=== PATIENT | female | born 1985 | race Caucasian/White ===

== ENCOUNTER 2019-03-31 18:31 | Inpatient (IN) | payer OTHER ==
[~2019-03-31] VITALS: Ht 162.6 cm; Wt 69.1 kg
[~2019-03-31 18:31] MED LIST: AMOCLA875 PO; AMOX1XR PO; ARIP10 PO; AZIT250 PO; CARB200ER; CEPH500 PO; CLON.5 PO; CODACEE120 PO; CYCL10 PO; Crutch1 EACH MISC; DIAZ5 PO; DULO30 PO; EFFEXOR; ESCI20 PO; ESZO2 PO; Flonase 0.05% N16 GM; GABA300 PO; HYDACE5 PO; HYDACE5325 PO; IBUHYD PO; IBUP400 PO; IBUP600 PO; IBUP800 PO; ISODICACE PO; LAMICTAL XR250 MG PO; LAMO100; LAMO100 PO; LATUDA60 MG PO; LORA1 PO; METCAR500 PO; METCAR750 PO; METF500 PO; METO5A PO; MULVITMINE; NAPR500 PO; Norco 5-325 Ta1 EACH PO; OMEP20ER PO; ONDA4 PO; OXYACE5T PO; PENVK500 PO; PRAZ1; PRED20 PO; PROACE100 PO; PROC10 PO; Percocet 5-3251 EACH PO; RXCLIN PO; RXHYDACE PO; TRAZ100 PO; Ultram50 MG PO; Veetids 500500 MG PO; Zofran Odt4 MG SL; [UNRECOGNIZED DRUG - REMARK]
[2019-03-31 19:03] LABS: BASOPHILS ABSOLUTE AUTO 0.06 K/mm3 (0.00-0.23); BASOPHILS PERCENT AUTO 0 % (0-2); EOSINOPHILS ABSOLUTE AUTO 0.05 K/mm3 (0.00-0.68); EOSINOPHILS PERCENT AUTO 0 % (0-6); Hematocrit 38.1 % (33.0-51.0); Hemoglobin 12.7 g/dL (11.5-16.0); IMMATURE GRAN PERCENT AUTO 1 % (0-1); LYMPHOCYTES ABSOLUTE AUTO 1.43 K/mm3 (0.84-5.20); LYMPHOCYTES PERCENT AUTO 5 % (21-46); MONOCYTES ABSOLUTE AUTO 0.38 K/mm3 (0.16-1.47); MONOCYTES PERCENT AUTO 1 % (4-13); Mean Corpuscular HGB 30.8 pg (26.0-34.0); Mean Corpuscular HGB Conc 33.3 g/dL (31.5-36.5); Mean Corpuscular Volume 93 fL (80-100); Mean Platelet Volume 8.7 fL (9.1-12.4); NEUTROPHILS ABSOLUTE AUTO 25.39 K/mm3 (1.96-9.15); NEUTROPHILS PERCENT AUTO 92 % (41-73); Platelet Count 322 K/mm3 (150-400); RDW Coefficient Variation 13.4 % (11.7-14.2); RDW Standard Deviation 46.2 fL (35.1-46.3); Red Blood Cell Count 4.12 M/mm3 (3.80-5.20); White Blood Cell Count 27.51 K/mm3 (4.00-11.30)
[2019-03-31 19:30] LABS: Alanine Aminotransfer (ALT/SGP 22 U/L (12-78); Albumin, Blood 3.3 g/dL (3.4-5.0); Albumin/Globulin Ratio 0.8 (0.8-1.8); Alk Phos 151 U/L (50-136); Anion Gap 8 mmol/L (6-16); Aspartate Aminotrans (AST/SGOT 82 U/L (12-37); Bilirubin, Total 0.5 mg/dL (0.1-1.0); Blood Urea Nitrogen 11 mg/dL (8-24); Bun/Creatinine Ratio 17.3 (12.0-20.0); CO2, Blood 23 mmol/L (21-32); Calcium, Blood 9.1 mg/dL (8.5-10.1); Chloride, Blood 104 mmol/L (98-108); Creatinine, Blood 0.64 mg/dL (0.40-1.00); Globulin, Blood 4.2 g/dL (2.2-4.0); Glomerular Filtration Rate >60 (60-); Glucose, Blood 116 mg/dL (70-99); Potassium, Blood 4.1 mmol/L (3.5-5.5); Sodium, Blood 135 mmol/L (136-145); Total Protein, Blood 7.5 g/dL (6.4-8.2)
[2019-03-31] MEDS ORDERED: TIZA4 PO (20:08)
[2019-03-31] MEDS ORDERED: Atarax10 MG PO (20:09)
[2019-03-31 21:25] LABS: Source, Urine Clean Catch
[2019-03-31 21:26] LABS: Base Excess Venous -0.8 mmol/L; Bicarbonate Venous 24.3 mmol/L (24.0-30.0); PCO2 Venous 32.2 mmHg (38-42); PO2 Venous 82.2 mmHg (38-42); pH Blood Venous 7.46 (7.34-7.37)
[2019-03-31 21:28] LABS: Bilirubin, Urine Neg (Neg); Blood, Urine Neg (Neg); Glucose Qualitative, Urine Neg (Neg); Ketones, Urine Neg (Neg); Leukocyte Esterase, Urine 1+ (Neg); Nitrite, Urine Neg (Neg); Protein, Urine 1+ (Neg); Urobilinogen, Urine NORM (Normal)
[2019-03-31 21:32] LABS: Appearance, Urine Clear (Clear); Color, Urine Yellow (P-Yellow)
[2019-03-31 21:35] LABS: Bacteria Few /hpf; Red Blood Cells, Urine Not Seen /hpf (0-2); Squamous Epithelial Cells Mod /hpf (Few)
[2019-03-31 21:39] LABS: U Amphetamine Screen DETECTED; U Barbituate Screen Not Detected; U Benzodiazapine Screen Not Detected; U Buprenorphine Screen Not Detected; U Cannabinoids Screen DETECTED; U Cocaine Screen Not Detected; U Methadone Screen Not Detected; U Methamphetamine Screen DETECTED; U Opiates Screen DETECTED; U Oxycodone Screen Not Detected; U Phencyclidine Screen Not Detected; U Propoxyphene Screen Not Detected
--- NOTE | 2019-03-31 23:00 | NUR ---
RECEIVED HAND OFF FROM ER NURSE USING SBAR. TRANSPORTED TO ROOM PCU 3 VIA SRTETCHER. TRANSFERED SELF TO BED WITH STANDBY ASSIST, TOLERATED WELL. AAO X3, RIOS, FOLLOWS ALL COMMANDS. ORIENTED TO ROOM, CALL SYSTEM, AND POC, VOICES UNDERSTANDING. LYING IN SEMI FOWLERS WITH EYES OPEN WHILE VISITING WITH NEIGHBOR AT BEDSIDE. RESPIRATIONS EVEN AND RAPID ON O2 AT 2L/NC. LUNG SOUNDS COARSE BILATERALLY. ABDOMEN SOFT AND NONDISTEDED. BOWEL SOUNDS HYPERACTIVE IN ALL QUADS. CONTINENT OF BOWEL AND BLADDER, USES BATHROOM COMMODE. RIGHT AC 20G PIV IS PATENT, INFUSING NS BOLUS AND ZITHROMAX AT 250/HR. DENIES FURTHER NEEDS OR WANTS AT THIS TIME. ADMISSION ASSESSMENT IN PROGRESSS. SAFETY MEASURES IN PLACE. WILL CONTINUE TO MONITOR.
[2019-04-01 01:45] LABS: Adenovirus Not Detected (NOT DETECT); Bordetella pertussis Not Detected (NOT DETECT); Chlamydophila pneumoniae Not Detected (NOT DETECT); Coronavirus 229E Not Detected (NOT DETECT); Coronavirus HKU1 Not Detected (NOT DETECT); Coronavirus NL63 Not Detected (NOT DETECT); Coronavirus OC43 Not Detected (NOT DETECT); Human Metapneumovirus Not Detected (NOT DETECT); Human Rhinovirus/Enterovirus Not Detected (NOT DETECT); Influenza A Not Detected (NOT DETECT); Influenza A/2009-H1 Not Detected (NOT DETECT); Influenza A/H1 Not Detected (NOT DETECT); Influenza A/H3 Not Detected (NOT DETECT); Influenza B Not Detected (NOT DETECT); Mycoplasma pneumoniae Not Detected (NOT DETECT); Parainfluenza Virus 1 Not Detected (NOT DETECT); Parainfluenza Virus 2 Not Detected (NOT DETECT); Parainfluenza Virus 3 Not Detected (NOT DETECT); Parainfluenza Virus 4 Not Detected (NOT DETECT); Respiratory Syncytial Virus Not Detected (NOT DETECT)
[2019-04-01 04:20] LABS: BASOPHILS ABSOLUTE AUTO 0.07 K/mm3 (0.00-0.23); BASOPHILS PERCENT AUTO 0 % (0-2); EOSINOPHILS ABSOLUTE AUTO 0.14 K/mm3 (0.00-0.68); EOSINOPHILS PERCENT AUTO 1 % (0-6); Hematocrit 35.3 % (33.0-51.0); Hemoglobin 11.7 g/dL (11.5-16.0); IMMATURE GRAN ABSOLUTE AUTO 0.18 K/mm3 (0.00-0.10); IMMATURE GRAN PERCENT AUTO 1 % (0-1); LYMPHOCYTES ABSOLUTE AUTO 2.45 K/mm3 (0.84-5.20); LYMPHOCYTES PERCENT AUTO 9 % (21-46); MONOCYTES ABSOLUTE AUTO 0.26 K/mm3 (0.16-1.47); MONOCYTES PERCENT AUTO 1 % (4-13); Mean Corpuscular HGB 30.2 pg (26.0-34.0); Mean Corpuscular HGB Conc 33.1 g/dL (31.5-36.5); Mean Corpuscular Volume 91 fL (80-100); Mean Platelet Volume 9.2 fL (9.1-12.4); NEUTROPHILS ABSOLUTE AUTO 23.39 K/mm3 (1.96-9.15); NEUTROPHILS PERCENT AUTO 88 % (41-73); Platelet Count 285 K/mm3 (150-400); RDW Coefficient Variation 13.7 % (11.7-14.2); Red Blood Cell Count 3.87 M/mm3 (3.80-5.20); White Blood Cell Count 26.49 K/mm3 (4.00-11.30)
--- NOTE | 2019-04-01 04:42 | NUR ---
PT ASKED FOR A BREATHING TREATMENT STATING THAT SHE IS COUGHING AND FEELS TIGHT. PT'S BREATH SOINDS ARE COARSE BILATERALLY. VS TAKEN AND PLACED BIOX. EXCEPT O2 SAT AT 89% WITH O2 AT 5L/NC. RT CONTACTED AND AT BEDSIDE TO RE EVALUATE. SAFETY MEASURES IN PLACE. WILL CONTINUE TO MONITOR.
[2019-04-01 04:44] LABS: Alanine Aminotransfer (ALT/SGP 22 U/L (12-78); Albumin, Blood 2.5 g/dL (3.4-5.0); Albumin/Globulin Ratio 0.6 (0.8-1.8); Alk Phos 139 U/L (50-136); Anion Gap 5 mmol/L (6-16); Aspartate Aminotrans (AST/SGOT 63 U/L (12-37); Bilirubin, Total 0.4 mg/dL (0.1-1.0); Blood Urea Nitrogen 9 mg/dL (8-24); Bun/Creatinine Ratio 16.1 (12.0-20.0); CO2, Blood 23 mmol/L (21-32); Chloride, Blood 114 mmol/L (98-108); Creatinine, Blood 0.56 mg/dL (0.40-1.00); Globulin, Blood 3.9 g/dL (2.2-4.0); Glomerular Filtration Rate >60 (60-); Glucose, Blood 122 mg/dL (70-99); Potassium, Blood 4.3 mmol/L (3.5-5.5); Sodium, Blood 142 mmol/L (136-145); Total Protein, Blood 6.4 g/dL (6.4-8.2)
--- NOTE | 2019-04-01 06:44 | NUR ---
SHIFT SUMMARY LYING IN SEMI FOWLERS WITH EYES FLUTTERING IN EXHAUSTION. SHE HAS BEEN TRYING TO REST UNSUCCESFULLY. FINE CRACKES NOTED IN LEFT BASE. LABORED, AND SHALLOW RESPIRATIONS WITH O2 SAT AT 80-88%. IVF S'D , PT PLACED ON OXIMIZER, O2 SAT INCREASED TO 88-90%. HUMIDITY PACED TO OXIMIZER. RT INSTRUCTED NURSING THAT OXIMIZER COULD NOT HAVE MOISTURE. PT PLACED ON HIGH FLOW O2 WITH HUMIDITY. OXYGENATION IMPROVED TO 88-93%. PT CONTINUES TO TRY TO FALL ASLEEP AT THIS TIME UT IS ABLE TO MAINTAIN O2. SAFETY MEASURES IN PLACE. HAND OFF GIVEN TO Louann SPEAR RN USING SBAR.
[2019-04-01 11:40] LABS: PCO2 Arterial 32.7 mmHg (35-45); pH Blood Arterial 7.42 (7.35-7.45)
--- NOTE | 2019-04-01 19:45 | NUR ---
SUMMARY: SEE RT NOTES. PT HAS BEEN DROWSY AND ATTEMPTING TO SLEEP TODAY WITHOUT MUCH SUCCESS. PT RESTLESS AND ANXIOUS, ANSWERING QUESTIONS APPROPRIATELY. SPO2 DESAT TO HIGH 80'S EACH TIME PT FELL ASLEEP THIS AM. SPOKE WITH KIRK FROM RT AND PT SWITCHED FROM HIGH FLOW O2 12L TO AIR-VO 50L AND 60%FIO2. CONTINUED TO MONITOR PT CLOSLY. PT ABLE TO REST A LITTLE BETTER, AND RR SLOWED WITH AIR-VO AND MAINTAINED SPO2 ABOVE 90%. COUGHING THIN PINK SPUTUM OCCASIONALLY, SAMPLE SENT. TELE WNL, ALL OTHER VSS. CONTINUING TO MONITOR CLOSELY AND CONSULT WITH RT AND MD'S.
--- NOTE | 2019-04-02 00:40 | NUR ---
PLACED ON BIPAP BY RT PER MD ORDER AFTER RESPIRATIONS REMAIN IN THE 50'S. PT AMBULATED TO BATHROOM AND URINATED BEFOR BEING PLACED ON BIPAP, TOLERATED WELL. WILL CONTINUE TO MONITOR.
--- NOTE | 2019-04-02 01:49 | NUR ---
TRANSFERED TO ICU [address] IRWIN AFTER RESPIRATIONS MAINTAINED IN THE 30'S TO 50'S. ON BIPAP FOR AN HOUR. REPORT CALLED TO Charli PEÑA RN USING SBAR. TRANSPORTED TO ROOM VIA BED WITH ALL BELONGINGS TAKEN WITH HER AND HER FRIEND AT BEDSIDE. PT'S FRIEND LEFT THE FLOOR WITH PT'S BELONGINGS STATING THAT SHE WOULD BE BACK IN A FEW MOMENTS. DR. BUTLER CONTACTED AND INFORMED OF TRANSFER.
--- NOTE | 2019-04-02 01:55 | NUR ---
PT TRANSFER FROM PCU TO ICU 13 VIA HOSP BED. PT DROWSY BUT A+O TO PERSON, PLACE, AND TIME. PT FOLLOWED COMMANDS AND WAS ABLE TO MOVE IN BED WITH NO INCREASED SOB, HOWEVER PT FALLS ASLEEP WITH INCREASED RR AND RESTLESS LEG. LS COARSE CRACKLE T/O R AND COARSE LEFT UP DIMINISHED BASES. PT AWAKENED EASILY AND STATED THAT THE RESTLESS LEGS, TWITCHING AND JUMPING AROUND WHEN SLEEPING IS NORMAL. PT DENIED TAKING ANYTHING TODAY AND STATED THAT SHE TAKES VICODIN ONLY EVERY ONCE IN A WHILE. CURRENT RR VARIES BETWEEN 28-53 bpm. PT REQUESTED NOT TO HAVE FAMILY AT BEDSIDE AT THIS TIME. CALL LIGHT WITHIN REACH.
[2019-04-02 02:33] LABS: PCO2 Arterial 36.7 mmHg (35-45); PO2 Arterial 65.9 mmHg (80-100); pH Blood Arterial 7.39 (7.35-7.45)
--- NOTE | 2019-04-02 02:47 | NUR ---
PT DENIES POSSIBLE AT THIS TIME.
[2019-04-02 03:46] LABS: BASOPHILS ABSOLUTE AUTO 0.03 K/mm3 (0.00-0.23); BASOPHILS PERCENT AUTO 0 % (0-2); EOSINOPHILS ABSOLUTE AUTO 0.21 K/mm3 (0.00-0.68); EOSINOPHILS PERCENT AUTO 1 % (0-6); Hematocrit 35.2 % (33.0-51.0); Hemoglobin 11.5 g/dL (11.5-16.0); IMMATURE GRAN ABSOLUTE AUTO 0.09 K/mm3 (0.00-0.10); IMMATURE GRAN PERCENT AUTO 0 % (0-1); LYMPHOCYTES ABSOLUTE AUTO 1.46 K/mm3 (0.84-5.20); LYMPHOCYTES PERCENT AUTO 7 % (21-46); MONOCYTES ABSOLUTE AUTO 0.29 K/mm3 (0.16-1.47); MONOCYTES PERCENT AUTO 1 % (4-13); Mean Corpuscular HGB 30.5 pg (26.0-34.0); Mean Corpuscular HGB Conc 32.7 g/dL (31.5-36.5); Mean Corpuscular Volume 93 fL (80-100); Mean Platelet Volume 9.1 fL (9.1-12.4); NEUTROPHILS ABSOLUTE AUTO 17.95 K/mm3 (1.96-9.15); NEUTROPHILS PERCENT AUTO 90 % (41-73); Platelet Count 220 K/mm3 (150-400); RDW Coefficient Variation 13.8 % (11.7-14.2); RDW Standard Deviation 47.4 fL (35.1-46.3); Red Blood Cell Count 3.77 M/mm3 (3.80-5.20); White Blood Cell Count 20.03 K/mm3 (4.00-11.30)
--- NOTE | 2019-04-02 03:47 | NUR ---
ABG WITH NO SIG CHANGES FROM AM ABG. PT CONTINUES TO BE RESTLESS. RR CONTINUES IN THE 40'S. SATS 93-95%. MOTHER CONTINUES AT BEDSIDE.
[2019-04-02 04:01] LABS: Anion Gap 9 mmol/L (6-16); Blood Urea Nitrogen 7 mg/dL (8-24); CO2, Blood 22 mmol/L (21-32); Calcium, Blood 8.4 mg/dL (8.5-10.1); Chloride, Blood 108 mmol/L (98-108); Creatinine, Blood 0.54 mg/dL (0.40-1.00); Glomerular Filtration Rate >60 (60-); Glucose, Blood 104 mg/dL (70-99); Potassium, Blood 4.2 mmol/L (3.5-5.5); Sodium, Blood 139 mmol/L (136-145)
--- NOTE | 2019-04-02 06:04 | NUR ---
PT STATES FENTANYL IS HELPING BUT NOT LASTING LONG. PT LESS RESTLESS NOW AND RR 34-41.
--- NOTE | 2019-04-02 06:20 | NUR ---
UP TO BSC: PT UP TO BSC WITH EASY ONE-PERSON ASSIST WEARING BIPAP. PT DESATURATED TO 86% BUT QUICKLY UP TO 91% AFTER BACK INTO BED. MOM REMAINS AT BEDSIDE.
--- NOTE | 2019-04-02 07:49 | NUR ---
ASSUMED CARE: RECEIVED REPORT FROM NOC RN LOLA PEÑA. REVIEWED ORDERS AND LABS. MOTHER ARIVES TO THE RN DESK AND STATES PT IS FEELING NAUSIOUS AND HAS A HEADACHE. UPON VERAFYING WITH PT MEDICATIONS ARE ADMINISTERED. STATES HEADACHE IS 6/10 PAIN. UPON ENTERING THE ROOM PT APPEARS TO BE VERY WEAK AND FATIGUED. A/O X 4. BIPAP IS REMOVED SO PT CAN TAKE MEDICATIONS O2 SATS DROP TO APPROX 88 WHILE BIPAP IS OFF. LUNGS SOUND VERY TIGHT T/O MORE ON THE R SIDE WITH EXPRATORY WHEEZES, RR IS IN THE 30-40. EDUCATED PT ON FOCUSING ON HER BREATHING AND SLOWING IT DOWN. WILL CONTINUE TO MONITOR AND ASSESS FURTHER.
--- NOTE | 2019-04-02 10:12 | NUR ---
METH POSITIVE UA: TALKED WITH PT WHILE THE FAMILY OUT OF THE ROOM. PT ADMITS TO SMOKING METH. PT STATES APPRECIATION FOR NOT ASKING IN FRONT OF FAMILY. MOTHER PREVIOUSLY STATED TO DR ACMPBELL HAS BEEN CLEAN FROM DRUGS AND ALCOHOL FOR 15 YEARS.
--- NOTE | 2019-04-02 19:13 | NUR ---
SHIFT SUMMARY: PT HAS REMAINED ON BPAP ALL DAY WITH QUICK BREAKS FOR A DRINK. STILL REMAINES TO APPEAR VERY FATIGUED. BECOMES ANXIOUS AT TIMES. PRECEDEX IS CURRENTLY AT 0.4 MCG/KG/HR. ATIVAN GIVEN PRN FOR INCREASED ANXIETY. PT O2 HAS BEEN MAINTAINING >88% T/O THE DAY. PRESSURES WERE INCREASED TO 12/7 AND FIO2 WAS DECREASED TO 55%. LUNGS REMAIN THE SAME TIGHT AND WHEEZE. VSS T/O THE DAY. WILL CONTINUE TO MONITOR AND REPORT TO ONCOMING RN. CALL LIGHT IN REACH. BED IN LOWEST POSSITION.
--- NOTE | 2019-04-02 20:24 | NUR ---
CARE ASSUMED/ PROVIDER COMMUNICATION REPORT RECEIVED, CARE ASSUMED FROM CLARA TOLBERT. UPON ASSUMING CARE PT REPORTS FEELING ANXIOUS, REQUESTS TO USE BATHROOM. PT PLACED ON BEDPAN. PRECEDEX TITRATED, SEE FLOWSHEET. PT CONTINUES TO BE ANXIOUS, RR 40'S-50'S. ATIVAN GIVEN. AFTER ATIVAN PT RESTING QUIETLY, AROUSES WITH STIMULI. RR CONTINUE TO BE ELEVATED. SPOKE WITH DR. IRWIN ABOUT RESP RATE. STATES ONLY TO NOTIFY IF FIO2 REQUIREMENTS ON BIPAP REACHES 70%. FIO2 45% AT THIS TIME.
[2019-04-03 03:32] LABS: BASOPHILS ABSOLUTE AUTO 0.01 K/mm3 (0.00-0.23); BASOPHILS PERCENT AUTO 0 % (0-2); EOSINOPHILS PERCENT AUTO 0 % (0-6); Hematocrit 37.3 % (33.0-51.0); Hemoglobin 12.3 g/dL (11.5-16.0); IMMATURE GRAN ABSOLUTE AUTO 0.08 K/mm3 (0.00-0.10); IMMATURE GRAN PERCENT AUTO 1 % (0-1); LYMPHOCYTES ABSOLUTE AUTO 1.04 K/mm3 (0.84-5.20); LYMPHOCYTES PERCENT AUTO 9 % (21-46); MONOCYTES ABSOLUTE AUTO 0.14 K/mm3 (0.16-1.47); MONOCYTES PERCENT AUTO 1 % (4-13); Mean Corpuscular HGB 30.6 pg (26.0-34.0); Mean Corpuscular Volume 93 fL (80-100); Mean Platelet Volume 9.1 fL (9.1-12.4); NEUTROPHILS ABSOLUTE AUTO 10.43 K/mm3 (1.96-9.15); NEUTROPHILS PERCENT AUTO 89 % (41-73); Platelet Count 183 K/mm3 (150-400); RDW Coefficient Variation 13.6 % (11.7-14.2); RDW Standard Deviation 46.5 fL (35.1-46.3); Red Blood Cell Count 4.02 M/mm3 (3.80-5.20)
[2019-04-03 03:49] LABS: Albumin, Blood 2.2 g/dL (3.4-5.0); Anion Gap 11 mmol/L (6-16); Blood Urea Nitrogen 16 mg/dL (8-24); Bun/Creatinine Ratio 27.3 (12.0-20.0); CO2, Blood 22 mmol/L (21-32); Calcium, Blood 8.6 mg/dL (8.5-10.1); Chloride, Blood 107 mmol/L (98-108); Creatinine, Blood 0.59 mg/dL (0.40-1.00); Glomerular Filtration Rate >60 (60-); Glucose, Blood 122 mg/dL (70-99); Phosphorus, Blood 4.3 mg/dL (2.5-4.9); Sodium, Blood 140 mmol/L (136-145)
--- NOTE | 2019-04-03 06:06 | NUR ---
SUMMARY SINCE ASSUMING CARE, RESPIRATORY RATE CONSISTENTLY ELEVATED BETWEEN 30-50. RESPIRATORY THERAPY TITRATED FIO2 TO 40%, BUT AFTER TWO HOURS PT DID NOT TOLERATE O2 SATURATIONS DROPPED TO BETWEEN 86-88%. ANXIETY MANAGED WITH PRECEDEX AND ATIVAN. BP, HR STABLE. AFEBRILE. NEURO ASSESSMENTS UNCHANGED. PT HAS SLEPT SOUNDLY AND STARTLES AWAKE BUT CONSISTENTLY ORIENTED. LOW URINE OUTPUT, PT HAS HAD MINIMAL ORAL FLUIDS. PT HAS NOT USED CALL LIGHT DURING NIGHT. VERBALIZES NEEDS DURING NURSE ROUNDING.
--- NOTE | 2019-04-03 11:04 | NUR ---
PT HAS HAD A QUIET MORNING W/O PAIN OR DISTRESS OTHER THAN C/O SL [place] AND SOME PROGRESSING ANXIETY THAT WAS TREATED. BIPAP SETTINGS REMAIN 12/7 AT 45% AND RR HAS BEEN SLOWING FROM MID 40 TO MID 30 RANGE. PRECEDEX GTT REMAINS AT 0.7MCG AND IVF TKO FOR ABX. ORAL CARE COMPLETED.
[2019-04-03 12:06] LABS: FINAL INTERPRETATION Negative (.); HIV 1 AB Negative (Negative); HIV 2 AB Negative (Negative)
--- NOTE | 2019-04-03 13:59 | NUR ---
PT IS RESTING W/O DISTRESS ON HFNC 50 L AT 47%. OTHER THAN RR INC 5-10 POINTS, PT STATS 89-95 AND PT DENIES DISTRESS ON THESE SETTINGS. WILL MONITOR AND CHANGE TO BIPAP IF NOT TOLERATING HFNC. PRECEDEX GTT REMAINS UNCHNAGED.
--- NOTE | 2019-04-03 16:36 | NUR ---
PT EASILY AROUSED AND ON BEDPAN WITH NOTED RESULTS.
--- NOTE | 2019-04-03 18:21 | NUR ---
PT IS RESTING AND CALM ON PRECEDEX AND ATIVAN. PT HAS SOME FAMILY IN TO VISIT AND IS SLEEPING/RESTING. VSS. I/O NOTED.
--- NOTE | 2019-04-03 21:31 | NUR ---
CARE ASSUMED REPORT RECEIVED, CARE ASSUMED AT 1900. FAMILY INITIALLY AT BEDSIDE, BUT SINCE THEN HAS LEFT. PT REPORTS FEELING ANXIOUS, MEDICATED WITH ATIVAN IN ADDITION TO PRECEDEX. VITAL SIGNS STABLE. SEE SHIFT ASSESSMENT. PT RESTING QUIETLY SINCE ATIVAN ADMINISTRATION.
[2019-04-04 03:48] LABS: BASOPHILS ABSOLUTE AUTO 0.02 K/mm3 (0.00-0.23); BASOPHILS PERCENT AUTO 0 % (0-2); EOSINOPHILS PERCENT AUTO 0 % (0-6); Hematocrit 35.3 % (33.0-51.0); Hemoglobin 11.9 g/dL (11.5-16.0); IMMATURE GRAN PERCENT AUTO 1 % (0-1); LYMPHOCYTES ABSOLUTE AUTO 1.49 K/mm3 (0.84-5.20); LYMPHOCYTES PERCENT AUTO 11 % (21-46); MONOCYTES ABSOLUTE AUTO 0.38 K/mm3 (0.16-1.47); MONOCYTES PERCENT AUTO 3 % (4-13); Mean Corpuscular HGB 30.4 pg (26.0-34.0); Mean Corpuscular HGB Conc 33.7 g/dL (31.5-36.5); Mean Platelet Volume 9.7 fL (9.1-12.4); NEUTROPHILS ABSOLUTE AUTO 12.21 K/mm3 (1.96-9.15); NEUTROPHILS PERCENT AUTO 86 % (41-73); Platelet Count 153 K/mm3 (150-400); RDW Coefficient Variation 13.4 % (11.7-14.2); RDW Standard Deviation 44.1 fL (35.1-46.3); Red Blood Cell Count 3.92 M/mm3 (3.80-5.20)
[2019-04-04 03:49] LABS: Mean Corpuscular Volume 90 fL (80-100)
[2019-04-04 04:05] LABS: Albumin, Blood 2.2 g/dL (3.4-5.0); Anion Gap 5 mmol/L (6-16); Blood Urea Nitrogen 21 mg/dL (8-24); Bun/Creatinine Ratio 42.6 (12.0-20.0); CO2, Blood 27 mmol/L (21-32); Calcium, Blood 8.5 mg/dL (8.5-10.1); Chloride, Blood 105 mmol/L (98-108); Creatinine, Blood 0.49 mg/dL (0.40-1.00); Glomerular Filtration Rate >60 (60-); Glucose, Blood 140 mg/dL (70-99); Phosphorus, Blood 3.5 mg/dL (2.5-4.9); Potassium, Blood 4.4 mmol/L (3.5-5.5); Sodium, Blood 137 mmol/L (136-145)
--- NOTE | 2019-04-04 04:58 | NUR ---
BRADYCARDIA/PRECEDEX THROUGHOUT NIGHT HR HIGH 50'S AND 60'S. WITHIN LAST 15 MINUTES HR DOWN TO 20'S AND 30'S BUT NOT SUSTAINED. PRECEDEX TURNED OFF. PT EDUCATED AND AGREEABLE.
[2019-04-04 05:42] LABS: PCO2 Arterial 40.5 mmHg (35-45); PO2 Arterial 145 mmHg (80-100); pH Blood Arterial 7.44 (7.35-7.45)
--- NOTE | 2019-04-04 07:01 | NUR ---
SUMMARY SINCE PREVIOUS NOTE, HR MOSTLY 40'S-50'S, WITH A FEW OCCURANCES OF BRADYCARDIA INTO 30'S NOT SUSTAINED. LINENS CHANGED AFTER BEDPAN USE. PT NOTED TO HAVE BLOOD IN URINE, PT REPORTS SHE THINKS SHE STARTED HER PERIOD SHE HAS NOT HAD HER CONTROL THE LAST FEW DAYS. PRECEDEX REMAINED OFF DUE TO HEART RATE. PT TEARFUL THIS MORNING, REPORTING FEELING ANXIOUS. FENTANYL GIVEN. SINCE THEN, PT RESTING QUIETLY. OTHERWISE, ASSESSMENTS UNCHANGED AND VITALS STABLE. REPORT TO JASON, DAY SHIFT RN.
--- NOTE | 2019-04-04 08:19 | NUR ---
PT IS AWAKE, A/O, VISITING WITH AND DENIES ANY PAIN OR DISTRESS OTHER THAN FREQUENT URINATION. URINE IS YELLOW AND CLEAR. LR INFUSING AT 150 ML AND PT HAS BEEN NPO SINCE [place], AND WILL GIVE AM MEDS. PT DENIES ANY EVIDENCE OF BLEEDING DURING NOC AND VSS CURRENTLY.
--- NOTE | 2019-04-04 09:42 | NUR ---
PT ON EARLIER INITIAL ASSESSMENT INDICATES ANXIETY AND PRECEDEX IV GTT RESTARTED WITH VS NOTED. PT ALSO GIVEN ATIVAN. AT APPROX 0900 INQUIRED TO WEATHER PT WAS WILLING TO CHANGE TO HFNC AND SHE DECLINED AT THIS TIME. WILL GIVE PO MEDS AND REASSESS. PT OVERALL RR 26-32 AT THIS TIME AND WOB SEEMS IMPROVED FROM YESTERDAYS ASSESSMNETS AND PT AGGREES. PT OTHERWISE DENIES PAIN OR DISTRESS AT THIS TIME.
--- NOTE | 2019-04-04 10:29 | NUR ---
PT CHANGED TO HFNC AT 50L/44% AND TOLERATING WELL WITH RR 12-16 AND CURRENT SATS 98.
--- NOTE | 2019-04-04 12:38 | NUR ---
PT SLEEPING, PRECEDEX GTT DEC TO 0.2 AND WILL FOLLOW.
--- NOTE | 2019-04-04 14:36 | NUR ---
PT UP TO BSC TO VOID AND TOLERATED WELL. PT MENSTRATING AND STATES NORMAL FLOW. PT RESP STATUS TOLERATED BSC WELL AND NO DIZZINESS.
--- NOTE | 2019-04-04 18:11 | NUR ---
PT RESTING WELL W/O DISTRESS OR C/O PAIN. PT UP TO BSC AND CONT TO TOLERATE WELL. PT HAS GONE LONGER THIS PM OFF OF PRECEDEX GTT AND ATIVAN BUT IS BEGINING TO HAVE SOME ANXIETY AND WILL MEDICATE. PT IS ALSO ON NC AT 4L AND SAT 84 WITH EXERSION AND RAPPIDLY UP TO 94 IN BED. WILL ENCOURAGE, EDUCATE TO IMPROVING STATUS AND MEDICATE.
--- NOTE | 2019-04-04 21:23 | NUR ---
SPOKE WITH DR. DUARTE IN REGARDS TO PT REQUESTING SOMETHING FOR SLEEP; NEW ORDERS FOR MELATONIN 3MG AT HS. ALSO INFORMED DR. DUARTE THAT PT HAS BEEN TAKING ATIVAN 1MG Q4HR PRN FOR ANXIETY WITH PRECEDEX GTT THAT RECENTLY WAS TITRATED OFF EARLIER TODAY AROUND 1630. SINCE THEN PT HAS STATED THAT THE 1MG OF ATIVAN HAS BEEN UNEFFECTIVE. DR. DUARTE STATED SHE DID NOT WANT TO INCREASE THE ATIVAN DOSE, BUT TO ENCOURAGE A QUIET AND DARK ENVIRONMENT TO ATTEMPT TO RELAX THE PT.
[2019-04-05 04:16] LABS: BASOPHILS ABSOLUTE AUTO 0.02 K/mm3 (0.00-0.23); BASOPHILS PERCENT AUTO 0 % (0-2); EOSINOPHILS ABSOLUTE AUTO 0.02 K/mm3 (0.00-0.68); EOSINOPHILS PERCENT AUTO 0 % (0-6); Hematocrit 35.3 % (33.0-51.0); Hemoglobin 11.7 g/dL (11.5-16.0); IMMATURE GRAN ABSOLUTE AUTO 0.16 K/mm3 (0.00-0.10); IMMATURE GRAN PERCENT AUTO 2 % (0-1); LYMPHOCYTES ABSOLUTE AUTO 1.59 K/mm3 (0.84-5.20); LYMPHOCYTES PERCENT AUTO 17 % (21-46); MONOCYTES ABSOLUTE AUTO 0.23 K/mm3 (0.16-1.47); MONOCYTES PERCENT AUTO 2 % (4-13); Mean Corpuscular HGB 30.5 pg (26.0-34.0); Mean Corpuscular HGB Conc 33.1 g/dL (31.5-36.5); Mean Corpuscular Volume 92 fL (80-100); Mean Platelet Volume 9.7 fL (9.1-12.4); NEUTROPHILS ABSOLUTE AUTO 7.58 K/mm3 (1.96-9.15); NEUTROPHILS PERCENT AUTO 79 % (41-73); Platelet Count 181 K/mm3 (150-400); RDW Coefficient Variation 13.4 % (11.7-14.2); RDW Standard Deviation 45.3 fL (35.1-46.3); Red Blood Cell Count 3.84 M/mm3 (3.80-5.20)
[2019-04-05 04:32] LABS: Albumin, Blood 2.3 g/dL (3.4-5.0); Anion Gap 5 mmol/L (6-16); Blood Urea Nitrogen 16 mg/dL (8-24); Bun/Creatinine Ratio 29.5 (12.0-20.0); CO2, Blood 30 mmol/L (21-32); Calcium, Blood 8.4 mg/dL (8.5-10.1); Chloride, Blood 105 mmol/L (98-108); Creatinine, Blood 0.54 mg/dL (0.40-1.00); Glomerular Filtration Rate >60 (60-); Glucose, Blood 138 mg/dL (70-99); Phosphorus, Blood 3.5 mg/dL (2.5-4.9); Potassium, Blood 4.6 mmol/L (3.5-5.5); Sodium, Blood 140 mmol/L (136-145)
--- NOTE | 2019-04-05 06:29 | NUR ---
ASSUMED PT CARE/END OF SHIFT SUMMARY ASSUMED CARE AT 191 AT THAT TIME PT WAS RESTING IN BED WITH FAMILY AT BEDSIDE. PT WAS WEARING 4L VIA NC WITH OXYGEN SATURATIONS GREATER THAN 90%. PT STATED THAT THE ATIVAN SHE WAS GIVEN PRIOR BY DAY RN WAS NOT SUFFICIENT ENOUGH FOR HER. PT WAS EDUCATED THAT SHE WAS ON PRECEDEX AND ATIVAN; THEREFORE, SHE MAY NOT FEEL THE EXACT EFFECTS EARLIER; PT VERBALIZED UNDERSTANDING. PT QUESTIONED REGARDING HOW SHE TREATS HER ANXIETY AT HOME AND SHE STATED SHE SMOKES MARIJUANA. PT THEN REQUESTED THAT SHE HAVE SOMETHING TO HELP HER SLEEP; CALLED DR. DUARTE IN REGARDS TO ATIVAN AND GIVING SOMETHING FOR SLEEP. DR. DUARTE STATED SHE DIDN'T FEEL COMFORTABLE INCREASING THE ATIVAN, BUT ORDERED MELATONIN FOR SLEEP. UPON GIVING MELATONIN TO PT SHE LAUGHED AND STATED, "I'LL TAKE IT, BUT IT ISN'T GOING TO HELP." ASKED PT WHAT SHE TAKES AT HOME FOR SLEEP AND SHE STATED "TRAZODONE". WHEN ASKED WHAT DOSE SHE STATED "150MG". CALLED DR. DUARTE BACK WITH ORDERS TO GO AHEAD AND ADMINISTER TRAZODONE 150MG AT HS. PT PLEASED WITH THOSE ORDERS. ONLY ADMINISTERED 1MG OF ATIVAN THIS SHIFT. PT SEEMS MORE COMFORTABLE WITH FAMILY AT BEDSIDE; HOWEVER, IT APPEARS TO BE A LOT OF TRAFFIC IN AND OUT OF ROOM. PT UP TO BEDSIDE COMMODE THREE TIMES THIS SHIFT. MAINTAINED ON 4L VIA NC T/O NIGHT WITH NO ISSUES. PT CONTINUES WITH DRY, NON-PRODUCTIVE COUGH. LUNG SOUNDS REMAIN CLEAR T/O UPPER LOBES AND DIMINISHED T/O LOWER LOBES. PT TOLERATED CHICKEN NOODLE SOUP, CRACKERS, AND CHEESE LAST NIGHT WITH NO ISSUES. CALL LIGHT LEFT WITHIN REACH AND PT IS ABLE TO MAKE HER NEEDS KNOWN. WILL CONTINUE TO MONITOR UNTIL REPORT IS HANDED OFF TO DAY RN.
--- NOTE | 2019-04-05 07:19 | NUR ---
ASSUMED CARE REPORT FROM SN DALE. PATIENT ASLEEP.
--- NOTE | 2019-04-05 07:22 | NUR ---
HIGH FLOW NC AT 45L, 34%
--- NOTE | 2019-04-05 15:41 | NUR ---
PATIENT NOW MED NO TELE. CONTINUES TO C/O [place] AFTER TYLENOL GIVEN. COOL CLOTH TO FOREHEAD. ENCOURAGED COFEE
--- NOTE | 2019-04-05 17:05 | NUR ---
02 TITRATED TO 1L. ATIVAN 1 MG IV GIVEN FOR ANXIETY. TO BSC TO VOID
--- NOTE | 2019-04-05 17:51 | NUR ---
REPORT TO MAYELA Bynum RECORDS ASSOCIATE. PATIENT WILL TRANSFER TO [facility] IN W/O2
--- NOTE | 2019-04-06 04:30 | NUR ---
SHIFT SUMMARY A/O, ABLE TO MAKE NEEDS KNOWN. COOPERATIVE WITH CARE. CALLS AND ANSWERS QUESTIONS APPROPRIATELY. C/O HEADACHE THIS MORNING; MEDICATED PER EMAR. STATED HAD NOT BEEN ABLE TO REST MUCH OF THE NIGHT. RECIEVED 2 DOSES OF ATIVAN. UP INDPENDENTLY IN ROOM. HAS BEEN WITHOUT NEED OF O2 CANNULA FOR MUCH OF THIS SHIFT; ONLY NEEDED X1. SHOWERED PRIOR TO BED. NO ACUTE CHANGES OVERNIGHT. VSS/AFEBRILE. BED IN LOWEST POSITION. CALL LIGHT AND BELONGINGS WITHIN REACH. WCTM. REPORT TO ONCOMING RN.
--- NOTE | 2019-04-06 10:40 | NUR ---
DISCHARGED DISCHARGE INSTRUCTIONS, MEDICATION LIST AND FOLLOW UP APPOINTMENT REVIEWED WITH PT. QUESTIONS/CONCERNS ANSWERED. PT VERBALLY INDICATED UNDERSTANDING OF ALL INSTRUCTIONS RECEIVED. ESCORTED OUT VIA W/C BY VOLUNTEER
== END 2019-04-06 10:32 | disposition home or self-care (01) | DRG 871 ==
LOC: ER 18:31 → PCU 21:19 → ICUW 21:19 → ICUE 22:40 → PCU 22:46 → ICUW 04-02 01:37 → ICUE 04-02 14:47 → MEDS 04-05 18:09 → ENPENDDIS 04-06 08:44 → MEDS 04-06 10:32
PROVIDERS: Emergency Medicine; Internal Medicine Critical Care Medicine; Internal Medicine Pulmonary Disease; ADMIT Family Medicine
PROC: 5A09357 Assistance with Respiratory Ventilation, Less than 24 Consecutive Hours, Continuous Positive Airway Pressure (ICD-10-PCS; principal; 2019-04-02)
DX: A41.9 Sepsis, unspecified organism (principal); J18.9 Pneumonia, unspecified organism; J96.01 Acute respiratory failure with hypoxia; F31.60 Bipolar disorder, current episode mixed, unspecified; T43.624A Poisoning by amphetamines, undetermined, initial encounter; F17.210 Nicotine dependence, cigarettes, uncomplicated; J30.2 Other seasonal allergic rhinitis; K21.9 Gastro-esophageal reflux disease without esophagitis; G43.909 Migraine, unspecified, not intractable, without status migrainosus; F43.10 Post-traumatic stress disorder, unspecified; F19.10 Other psychoactive substance abuse, uncomplicated; F51.04 Psychophysiologic insomnia; J45.909 Unspecified asthma, uncomplicated; F41.9 Anxiety disorder, unspecified
CPT/HCPCS: 0099U; 36415; 36600; 71045; 71046; 80048; 80053; 80069; 81001; 81025; 82330; 82803; 83605; 85025; 86701; 86702; 87040; 87070; 87086; 87106; 87205; 94640; 94660; 94667; 94760; 94762; 96361; 96374; 96375; 99285-25; A9270; C9113; J0456; J0696; J1650; J1956; J2060; J2920; J3010; J7030; J7042; J7050

== ENCOUNTER 2019-04-07 21:01 | Inpatient (IN) | payer OTHER ==
[~2019-04-07] VITALS: Ht 162.6 cm; Wt 71.8 kg
[~2019-04-07 21:01] MED LIST changes: +Atarax10 MG PO; +TIZA4 PO
[2019-04-07 22:08] LABS: BASOPHILS ABSOLUTE AUTO 0.07 K/mm3 (0.00-0.23); BASOPHILS PERCENT AUTO 0 % (0-2); EOSINOPHILS ABSOLUTE AUTO 0.88 K/mm3 (0.00-0.68); EOSINOPHILS PERCENT AUTO 4 % (0-6); Hematocrit 34.3 % (33.0-51.0); Hemoglobin 11.3 g/dL (11.5-16.0); Mean Corpuscular HGB 31.1 pg (26.0-34.0); Mean Corpuscular HGB Conc 32.9 g/dL (31.5-36.5); Mean Platelet Volume 9.1 fL (9.1-12.4); Platelet Count 276 K/mm3 (150-400); RDW Coefficient Variation 13.5 % (11.7-14.2); RDW Standard Deviation 46.3 fL (35.1-46.3); Red Blood Cell Count 3.63 M/mm3 (3.80-5.20)
[2019-04-07 22:09] LABS: IMMATURE GRAN ABSOLUTE AUTO 1.04 K/mm3 (0.00-0.10); IMMATURE GRAN PERCENT AUTO 5 % (0-1); LYMPHOCYTES ABSOLUTE AUTO 5.71 K/mm3 (0.84-5.20); LYMPHOCYTES PERCENT AUTO 25 % (21-46); MONOCYTES PERCENT AUTO 6 % (4-13); Mean Corpuscular Volume 95 fL (80-100); NEUTROPHILS PERCENT AUTO 61 % (41-73)
[2019-04-07 22:25] LABS: Alanine Aminotransfer (ALT/SGP 31 U/L (12-78); Albumin/Globulin Ratio 0.8 (0.8-1.8); Alk Phos 100 U/L (50-136); Anion Gap 6 mmol/L (6-16); Aspartate Aminotrans (AST/SGOT 20 U/L (12-37); Bilirubin, Total 0.2 mg/dL (0.1-1.0); Blood Urea Nitrogen 25 mg/dL (8-24); Bun/Creatinine Ratio 30.8 (12.0-20.0); CO2, Blood 28 mmol/L (21-32); Calcium, Blood 8.5 mg/dL (8.5-10.1); Chloride, Blood 101 mmol/L (98-108); Creatinine, Blood 0.81 mg/dL (0.40-1.00); Globulin, Blood 3.9 g/dL (2.2-4.0); Glomerular Filtration Rate >60 (60-); Glucose, Blood 105 mg/dL (70-99); Potassium, Blood 5.3 mmol/L (3.5-5.5); Sodium, Blood 135 mmol/L (136-145); Total Protein, Blood 6.9 g/dL (6.4-8.2)
[2019-04-08 01:32] LABS: International Normalized Ratio 0.94
--- NOTE | 2019-04-08 05:07 | NUR ---
Pt arrived to PCU 1 at approx 0315 via bed, pivot transfer to pcu bed. Pt complains of 9/10 pain upon arrival, norco given per orders with no relief, per pt. Pt with VSS, tachypnea upon arrival which resolved within 3 minutes. Pt with short, shallow breaths. Pt tearful at times, then rests with eyes closed in bed, breathing easy. MD notified of pt request for better pain medication, no new orders recieved. See admission assessment for detailed assessment. Will continue to monitor and update as needed and until day RN assumes care.
--- NOTE | 2019-04-08 06:10 | NUR ---
Shift Summary No acute changes. Pt currently sleeping. RIOS, o2 stable on 2L, call light in reach, calls appropriately, able to make needs known. Pt remains alert and oriented. No changes from initial assessments. Will continue to update as appropriate.
--- NOTE | 2019-04-08 18:31 | NUR ---
SHIFT SUMMARY PT ALERT AND ORIENTED. VS STABLE. 02 SATS REMAIN ABOVE 90% ON RA. PT COMPLAINS OF PAIN IN HER CHEST THROUGHOUT SHIFT THAT IS WORSE WITH DEEP BREATHING. PT MEDICATED NEEDED. PT ABLE TO TRANSFER TO BATHROOM NEEDED. PT TOLERATING FULL LIQUID DIET. NO OTHER CHANGES AT THIS TIME. HEPARIN GTT INFUSING PER ORDERS. WILL CONTINUE TO MONITOR AND REPORT TO ONCOMING RN. CALL LIGHT IN REACH.
--- NOTE | 2019-04-08 19:20 | NUR ---
ASSUMED CARE PT SITTING UP IN BED, A&O X 4 REPORTING RT SIDE CHEST PAIN THAT WORSENS WITH RESPIRATORY EFFORT; WILL MEDICATE PER EMAR. HEPARIN GTT INFUSING AT 19 UNITS/KG/HR, VERIFIED PER ORDER WITH PLANNED REPEAT PTT AT 2200. UPDATE PT ON PLAN FOR SHIFT, PM LAB DRAW. VSS, ECG SHOWS SR IN THE 60'S AND O2 SATS 98% ON 2L/NC.
--- NOTE | 2019-04-08 23:53 | NUR ---
UPDATE PT CONTINUES TO REPORT 9/10 RT SIDE CHEST PAIN BUT HAS SOME RELIEF WITH PO NORCO AND FENTANYL. HEPARIN BOLUS GIVEN AND HEPARIN GTT TITRATED UP TO 21 UNITS/KG/HR PER PHARMACY CONSULT.
--- NOTE | 2019-04-09 06:11 | NUR ---
SHIFT SUMMARY NO ACUTE EVENTS OVERNIGHT. PT CONTINUES TO REPORT 8-9/10 RT SIDE CHEST PAIN WITH MIN-MOD PAIN DECREASE WITH NORCO AND FENTANYL. HEPARIN GTT CONTINUES AT 21 UNITS/KG/HR, REPEAT PTT PENDING OF 0600. VSS, ECG SHOWS SR AND O2 SATS MID TO LOW 90'S ON RA.
[2019-04-09 13:26] LABS: Mean Platelet Volume 8.9 fL (9.1-12.4); Platelet Count 363 K/mm3 (150-400)
--- NOTE | 2019-04-09 17:14 | NUR ---
SHIFT SUMMARY PT ALERT AND ORIENTED. VS STABLE. O2 SATS REMAIN ABOVE 90% ON RA. PT CONTINUES TO COMPLAIN ABOUT PAIN IN HER RIGHT CHEST THROUGHOUT SHIFT. PT MEDICATED PER ORDERS. PT ABLE TO AMBULATE INDEPENDENTLY IN ROOM. PT ABLE TO SHOWER THIS SHIFT. IV IN LEFT HAND HAS INFILTRATED. PT AWAITING NEW IV PLACEMENT. HEPARIN PAUSED AT THE MOMENT AND PHARMACY AWARE. WILL CONTINUE INFUSION ONCE ACCESS IS AVAILABLE. WILL CONTINUE TO MONITOR AND REPORT TO CAREER GUIDANCE COUNSELOR RN. CALL LIGHT IN REACH.
--- NOTE | 2019-04-10 08:00 | NUR ---
ASSUMED CARE PT ALERT AND ORIENTED. VS STABLE. O2 SATS REMAIN ABOVE 90% ON RA. PT COMPLAINS OF PLEURITIC CHEST PAIN. DR. BABB IN THIS AM WITH NEW ORDERS FOR PAIN MEDICATION. WILL CONTINUE TO TREAT PER EMAR. PT INDEPENDENT IN ROOM. HEPARIN GTT INFUSING PER ORDERS. STATUS CHANGED TO MEDICAL. WILL CONTINUE TO MONITOR.
--- NOTE | 2019-04-10 11:24 | NUR ---
REPORT CALLED TO IVELISSE ELIZABETH ON MEDICAL FLOOR. PT TO BE TAKEN UP BY WHEELCHAIR.
--- NOTE | 2019-04-10 11:55 | NUR ---
PT ARRIVED TO ROOM 355 FROM PCU 1 VIA W/C. PT IS INDEPENDENT IN ROOM, ORIENTED TO ROOM AND CALL SYSTEM. PT REPORTS CONTINUED RT CHEST PAIN AND IS REQUESTING PO PERCOCETT. WILL MEDICATE PER EMAR.
--- NOTE | 2019-04-10 18:03 | NUR ---
NO ACUTE CHANGES NOTED SINCE PT ARRIVAL TO ROOM. CONTINUES TO REPORT RT CHEST PAIN AT 8-9/10, REQUESTING HER PAIN MEDICATIONS, REPORTING MINIMAL TO NO IMPROVEMENT WITH MEDICATIONS. WILL CONTINUE TO MONITOR AND REPORT TO ONCOMING RN
--- NOTE | 2019-04-11 10:39 | NUR ---
HEPARIN GTT DISCONTINUED
--- NOTE | 2019-04-11 11:19 | NUR ---
LOVENOX INJECTION EDUCATED PT ON LOVENOX INJECTION BOTH VERBALLY AND WITH DEMONSTRATION. PT INDICATED UNDERSTANDING AND WILL BE SELF INJECTING THIS EVENING. PRINTED INSTRUCTIONS AND INFORMATION LEFT WITH PT.
[2019-04-12 07:25] LABS: BASOPHILS ABSOLUTE AUTO 0.04 K/mm3 (0.00-0.23); BASOPHILS PERCENT AUTO 0 % (0-2); EOSINOPHILS PERCENT AUTO 3 % (0-6); Hematocrit 35.1 % (33.0-51.0); Hemoglobin 11.2 g/dL (11.5-16.0); IMMATURE GRAN ABSOLUTE AUTO 0.08 K/mm3 (0.00-0.10); IMMATURE GRAN PERCENT AUTO 1 % (0-1); LYMPHOCYTES ABSOLUTE AUTO 4.15 K/mm3 (0.84-5.20); LYMPHOCYTES PERCENT AUTO 35 % (21-46); MONOCYTES ABSOLUTE AUTO 1.13 K/mm3 (0.16-1.47); MONOCYTES PERCENT AUTO 10 % (4-13); Mean Corpuscular HGB Conc 31.9 g/dL (31.5-36.5); Mean Corpuscular Volume 94 fL (80-100); Mean Platelet Volume 8.8 fL (9.1-12.4); NEUTROPHILS ABSOLUTE AUTO 6.25 K/mm3 (1.96-9.15); NEUTROPHILS PERCENT AUTO 52 % (41-73); Platelet Count 505 K/mm3 (150-400); RDW Coefficient Variation 13.8 % (11.7-14.2); RDW Standard Deviation 47.7 fL (35.1-46.3); Red Blood Cell Count 3.73 M/mm3 (3.80-5.20); White Blood Cell Count 11.95 K/mm3 (4.00-11.30)
--- NOTE | 2019-04-12 07:27 | NUR ---
34 year old Female with bilat PE's after dc home with pneumonia. 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 Pleasant andcooperative, room air sats greater than 92%
[2019-04-12 07:44] LABS: Alanine Aminotransfer (ALT/SGP 48 U/L (12-78); Albumin, Blood 2.6 g/dL (3.4-5.0); Albumin/Globulin Ratio 0.5 (0.8-1.8); Alk Phos 257 U/L (50-136); Anion Gap 5 mmol/L (6-16); Aspartate Aminotrans (AST/SGOT 19 U/L (12-37); Bilirubin, Total 0.2 mg/dL (0.1-1.0); Blood Urea Nitrogen 13 mg/dL (8-24); Bun/Creatinine Ratio 19.3 (12.0-20.0); CO2, Blood 29 mmol/L (21-32); Calcium, Blood 9.5 mg/dL (8.5-10.1); Chloride, Blood 103 mmol/L (98-108); Creatinine, Blood 0.67 mg/dL (0.40-1.00); Globulin, Blood 5.1 g/dL (2.2-4.0); Glomerular Filtration Rate >60 (60-); Glucose, Blood 119 mg/dL (70-99); Potassium, Blood 4.7 mmol/L (3.5-5.5); Sodium, Blood 137 mmol/L (136-145); Total Protein, Blood 7.7 g/dL (6.4-8.2)
[2019-04-12] MEDS ORDERED: DOC250 PO (16:06)
[2019-04-12] MEDS ORDERED: ENOX100I SC (16:07)
[2019-04-12] MEDS ORDERED: Percocet 5-3251 EACH PO (16:07)
[2019-04-12] MEDS ORDERED: TRAZ150T57 PO (16:08)
--- NOTE | 2019-04-12 17:10 | NUR ---
PT. DISCHARGED HOME WITH MOTHER. PT. VERBALIZED GIVING SELF LOVENOX INJECTION. GAVE TWO SHOTS WHILE HERE IN HOSPITAL.
== END 2019-04-12 17:10 | disposition home or self-care (01) | DRG 176 ==
LOC: ER 21:01 → PCU 04-08 03:31 → MEDS 04-10 11:50
PROVIDERS: Emergency Medicine; Family Medicine; ADMIT Internal Medicine
DX: I26.99 Other pulmonary embolism without acute cor pulmonale (principal); F30.4 Manic episode in full remission; R09.02 Hypoxemia; Z87.891 Personal history of nicotine dependence
CPT/HCPCS: 36415; 71045; 71046; 71260; 80053; 83605; 83880; 84145; 84484; 85025; 85049; 85610; 85730; 93005; 93010; 93970; 96365-59; 96366-59; 96376-59; 99285-25; J1170; J1644; J1650; J2405; J3010; Q0177; Q9967

== ENCOUNTER → 2019-11-13 | Outpatient (CLI) | payer OTHER ==
[~2019-11-13] MED LIST changes: +DOC250 PO; +ENOX100I SC; +TRAZ150T57 PO
[2019-11-13 13:01] LABS: Influenza A Negative (NEGATIVE); Influenza B Negative (NEGATIVE)
== END | disposition home or self-care (01) ==
LOC: LAB 10:48 → LAB SHORT 10:48
PROVIDERS: Family Medicine
DX: R05 Cough (principal)
CPT/HCPCS: 87804

== ENCOUNTER → 2023-10-18 | Outpatient (CLI) | payer OTHER ==
[2023-10-26 10:53] LABS: CORTISOL,U FREE - RATIO TO CRT 5.05 ug/g CRT; CORTISOL,URN FREE - PER VOLUME 3.33 ug/L; CREATININE,URINE - PER 24H 990 mg/d (700-1600); CREATININE,URINE - PER VOLUME 66 mg/dL; HOURS COLLECTED 24 hr; TOTAL VOLUME 1500 mL
== END | disposition home or self-care (01) ==
LOC: LAB 13:42 → LAB SHORT 13:42
PROVIDERS: Family Medicine
DX: R63.5 Abnormal weight gain (principal)
CPT/HCPCS: 81050; 82530

== ENCOUNTER → 2024-08-01 | Outpatient (CLI) | payer OTHER ==
[2024-08-01 14:07] LABS: BASOPHILS ABSOLUTE AUTO 0.04 K/mm3 (0.00-0.23); BASOPHILS PERCENT AUTO 1 % (0-2); EOSINOPHILS ABSOLUTE AUTO 0.15 K/mm3 (0.00-0.68); EOSINOPHILS PERCENT AUTO 2 % (0-6); Hematocrit 39.7 % (33.0-51.0); IMMATURE GRAN ABSOLUTE AUTO 0.02 K/mm3 (0.00-0.10); IMMATURE GRAN PERCENT AUTO 0 % (0-1); LYMPHOCYTES ABSOLUTE AUTO 2.74 K/mm3 (0.84-5.20); LYMPHOCYTES PERCENT AUTO 31 % (21-46); MONOCYTES ABSOLUTE AUTO 0.57 K/mm3 (0.16-1.47); MONOCYTES PERCENT AUTO 6 % (4-13); Mean Corpuscular HGB 29.9 pg (26.0-34.0); Mean Corpuscular HGB Conc 32.7 g/dL (31.5-36.5); Mean Corpuscular Volume 91 fL (80-100); Mean Platelet Volume 8.6 fL (9.1-12.4); NEUTROPHILS ABSOLUTE AUTO 5.35 K/mm3 (1.96-9.15); NEUTROPHILS PERCENT AUTO 60 % (41-73); Platelet Count 368 K/mm3 (150-400); RDW Coefficient Variation 13.6 % (11.7-14.2); RDW Standard Deviation 45.9 fL (35.1-46.3); Red Blood Cell Count 4.35 M/mm3 (3.80-5.20); White Blood Cell Count 8.87 K/mm3 (4.00-11.30)
[2024-08-01 14:20] LABS: Albumin, Blood 3.7 g/dL (3.4-5.0); Albumin/Globulin Ratio 0.8 (0.8-1.8); Bilirubin, Total 0.2 mg/dL (0.1-1.0); Bun/Creatinine Ratio 14.6 (12.0-20.0); Calcium, Blood 9.4 mg/dL (8.5-10.1); Creatinine, Blood 0.89 mg/dL (0.40-1.00); Globulin, Blood 4.4 g/dL (2.2-4.0); Potassium, Blood 3.5 mmol/L (3.5-5.5); Total Protein, Blood 8.1 g/dL (6.4-8.2)
== END | disposition home or self-care (01) ==
LOC: LAB SHORT 14:03
PROVIDERS: Chiropractor
DX: M79.661 Pain in right lower leg (principal)
CPT/HCPCS: 80053; 85025; 85379